=== PATIENT | male | born 1945 | race Caucasian/White ===

== ENCOUNTER 2017-10-02 15:33 | Emergency (ER) | payer OTHER ==
[~2017-10-02] VITALS: Ht 180.3 cm; Wt 86.0 kg
[~2017-10-02 15:33] MED LIST: AMLO5TAB22 PO; GABA300C3 PO; ROSU5 PO
[2017-10-02 15:34] VITALS: BP 200/84; PULSE 53; RESP 16; TEMP 98; O2SAT 100
--- NOTE | 2017-10-02 16:28 | RADRPT ---
EXAM DATE/TIME: 10/02/2017 16:05 [facility] COMPARISON: No previous studies available for comparison. INDICATIONS : Patient complains of right wrist pain and swelling. MEDICAL HISTORY : None. SURGICAL HISTORY : None. ENCOUNTER: Initial ACUITY: 2 days PAIN SCORE: 0/10 LOCATION: Right Hand FINDINGS: Two view examination of the right hand demonstrates no soft tissue swelling, dislocation, or fracture . The joint spaces are maintained. Bony mineralization is normal. CONCLUSION: Unremarkable limited examination of the right hand. Dajuan Parrish MD on October 02, 2017 at 16:26 Board Certified Radiologist. This report was verified electronically.
--- NOTE | 2017-10-02 16:29 | RADRPT ---
EXAM DATE/TIME: 10/02/2017 16:07 [facility] COMPARISON: No previous studies available for comparison. INDICATIONS : Patient complains of right wrist pain and swelling posteriorly after falling yesterday and bracing fa ll with right arm. MEDICAL HISTORY : None. SURGICAL HISTORY : None. ENCOUNTER: Initial ACUITY: 2 days PAIN SCORE: 7/10 LOCATION: Right Wrist FINDINGS: There is a normally displaced chip fracture involving the dorsal and ulnar aspect of the distal radia l epiphysis. The carpals appear intact. Alignment is otherwise satisfactory. Mineralization is normal and no significant arthritic changes are present. CONCLUSION: Distal radial epiphyseal chip fracture dorsally. Dajuan Parrish MD on October 02, 2017 at 16:26 Board Certified Radiologist. This report was verified electronically.
[2017-10-02] MEDS ORDERED: ATOR40TA16 PO (17:28)
[2017-10-02] MEDS ORDERED: TYLETAB34 PO (17:30)
--- NOTE | 2017-10-02 17:37 | PD ---
HPI Chief Complaint: Musculoskeletal Complaint Time Seen by Provider: 17:23 Travel History International Travel<30 days: No Contact w/Intl Traveler<30days: No Traveled to known affect area: No History of Present Illness HPI 72-year-old male presents to the emergency department with right wrist and hand pain for 1 day. Patient states that he missed a step and fell on his right wrist and hand went to his primary care physician. She sent him here for evaluation. Patient denies numbness or tingling. States that his pain is located in his wrist dorsal aspect. States he did hear a "crunch" when he fell. PFSH Past Medical History Cancer: Yes (NECK CANCER) Cardiovascular Problems: No High Cholesterol: Yes Diabetes: No Endocrine: No Genitourinary: No Hepatitis: No Hiatal Hernia: No Immune Disorder: No Musculoskeletal: Yes (HX OF BACK PROBLEMS, NOT CURRENT) Neurologic: Yes (PERIPHERAL NEUROPATHY) Psychiatric: No Reproductive: No Respiratory: No Thyroid Disease: No Past Surgical History AICD: No Endocrine Surgery: Yes (REMOVAL OF RIGHT PAROTID TUMOR, 2008) Joint Replacement: No Oral Surgery: Yes (TONSILLECTOMY) Pacemaker: No Tonsillectomy: Yes Other Surgery: Yes (REMOVAL OF LEFT PAROTID TUMOR) Social History Alcohol Use: Yes ("6 PACK WEEK") Tobacco Use: No Substance Use: No Allergies-Medications (Allergen,Severity, Reaction): Coded Allergies: feathers (Unverified Allergy, Mild, 10/02/17) Reported Meds & Prescriptions Reported Meds & Active Scripts Active Tylenol-Codeine #3 (Acetaminophen-Codeine) 300-30 mg Tab 1 Tab PO Q4H PRN 5 Days Take 1/2 to 1 tab every 4-6 hours as needed for pain. Reported Atorvastatin (Atorvastatin Calcium) 40 Mg Tab 40 Mg PO HS Gabapentin 300 Mg Cap 300 Mg PO BID Review of Systems Except as stated in HPI: all other systems reviewed are Neg Physical Exam Narrative GENERAL: Well-nourished, well-developed patient. SKIN: Focused skin assessment warm/dry. HEAD: Normocephalic. EYES: No scleral icterus. No injection or drainage. NECK: Supple, trachea midline. No JVD or lymphadenopathy. No midline tenderness CARDIOVASCULAR: Regular rate and rhythm without murmurs, gallops, or rubs. RESPIRATORY: Breath sounds equal bilaterally. No accessory muscle use. MUSCULOSKELETAL: No cyanosis, or edema. Right wrist-edema present at the dorsal wrist, no obvious deformities or crepitus. Neurovascularly intact. Right hand- edema of the wrist extending to the proximal hand. No deformity is crepitus no ecchymosis. Neurovascularly intact BACK: Nontender without obvious deformity. No CVA tenderness. No midline tenderness Data Data Last Documented VS Vital Signs Date Time Temp Pulse Resp B/P (MAP) Pulse Ox O2 Delivery O2 Flow Rate FiO2 10/02/17 15:34 98.0 53 16 200/84 (122) 100 Room Air Orders Orders Wrist, Complete ([id number]) (10/02/17 ) Hand, Limited (2vws) (10/02/17 ) Splinting (10/02/17 ) Ed Discharge Order (10/02/17 17:47) Fiberglass Splint Forearm Adul (10/02/17 ) [facility] Medical Decision Making Medical Screen Exam Complete: Yes Emergency Medical Condition: Yes Differential Diagnosis Plan fracture, wrist fracture, wrist contusion Narrative Course 72-year-old male presents to the emergency department with right wrist and hand pain for 1 day. Patient states that he missed a step and fell on his right wrist and hand went to his primary care physician. She sent him here for evaluation. Patient denies numbness or tingling. States that his pain is located in his wrist dorsal aspect. States he did hear a "crunch" when he fell. Vital signs stable. Physical exam findings consistent with contusion versus fracture of the wrist and possible extension into the hand. Last Impressions Wrist X-Ray 10/02/17 0000 Signed Impressions: Service Date/Time: Monday, October 02, 2017 16:07 - CONCLUSION: Distal radial epiphyseal chip fracture dorsally. Dajuan Parrish MD Hand X-Ray 10/02/17 0000 Signed Impressions: Service Date/Time: Monday, October 02, 2017 16:05 - CONCLUSION: Unremarkable limited examination of the right hand. Dajuan Parrish MD [employer] called for splinting of the distal radius. Advised he should follow- up with orthopedics. Return to primary care within 1 week. Advised to watch for signs of compartment syndrome. Tylenol 3 prescribed for pain control. Advised to cut in half as patient states he is sensitive to medications. Return to the emergency department for worsening or persistent symptoms. Patient understands and will comply. Diagnosis Primary Impression: Distal radius fracture Qualified Codes: S52.591A - Other fractures of lower end of right radius, initial encounter for closed fracture Referrals: Orthopedist Primary Care Physician Additional Instructions: Use ice or heat for symptom relief. Elevate the joint above the heart to reduce swelling. You may use compression with Vic wrap or similar to reduce swelling. If symptoms persist or worsen, return to the emergency department. Follow up with your primary care physician within 2 days. Scripts Acetaminophen-Codeine (Tylenol-Codeine #3) 300-30 mg Tab 1 TAB PO Q4H Y for PAIN for 5 Days, #12 TAB 0 Refills Take 1/2 to 1 tab every 4-6 hours as needed for pain. Prov: Josh Malone MD 10/02/17 Disposition: 01 DISCHARGE HOME Condition: Stable Kylie Garnica Oct 02, 2017 17:37
== END 2017-10-02 18:02 | disposition home or self-care (01) ==
LOC: NEPK 15:33
DX: S52.591A Other fractures of lower end of right radius, initial encounter for closed fracture (principal); E78.00 Pure hypercholesterolemia, unspecified; G62.9 Polyneuropathy, unspecified; W10.9XXA Fall (on) (from) unspecified stairs and steps, initial encounter; Z79.899 Other long term (current) drug therapy
CPT/HCPCS: 73110; 73120; 99283